=== PATIENT | male | born 1995 | race African-American/Black ===

== ENCOUNTER 2016-04-28 23:31 | Emergency (ER) | payer OTHER ==
[~2016-04-28 23:31] MED LIST: Z.0.NO CURRENT MEDS
[2016-04-28 23:33] VITALS: BP 128/60; PULSE 69; RESP 18; TEMP 97.8; O2SAT 96
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
[2016-04-29] MEDS ORDERED: IBUP-232 PO (01:18)
== END 2016-04-29 02:13 | disposition home or self-care (01) ==
LOC: NEPB 23:31
DX: S80.11XA Contusion of right lower leg, initial encounter (principal); V43.62XA Car passenger injured in collision with other type car in traffic accident, initial encounter; Y99.8 Other external cause status
CPT/HCPCS: 99283